=== PATIENT | male | born 1945 | race Caucasian/White ===

== ENCOUNTER 2020-12-14 13:14 | Outpatient (CLI) | payer MEDICARE ==
[~2020-12-14] VITALS: Ht 177.8 cm; Wt 95.4 kg
[2020-12-14 13:32] VITALS: BP 149/72
[2020-12-14] MEDS ORDERED: A/C/1TAB3 PO (13:57)
[2020-12-14] MEDS ORDERED: APIX5TAB PO (13:57)
[2020-12-14] MEDS ORDERED: ATOR80TA76 PO (13:57)
[2020-12-14] MEDS ORDERED: ASPI-999 PO (13:57)
[2020-12-14] MEDS ORDERED: GLUC100016 PO (13:57)
[2020-12-14] MEDS ORDERED: LISI10TA25 PO (13:57)
[2020-12-14] MEDS ORDERED: OMEP20TA7 PO (13:57)
[2020-12-14] MEDS ORDERED: TMSL.4C PO (13:57)
[2020-12-14] MEDS ORDERED: OMG1KC PO (13:57)
[2020-12-14] MEDS ORDERED: AMIO100T PO (13:57)
[2020-12-14 13:59] LABS: BASOPHILS % (AUTO) 1 % (0-10); EOSINOPHILS # (AUTO) 0.1 10^3/uL (0.0-0.3); EOSINOPHILS % (AUTO) 2 % (0-10); HEMATOCRIT 34 % (40-54); HEMOGLOBIN 10.8 g/dL (13.3-17.7); LYMPHOCYTES # (AUTO) 2.1 10^3/uL (1.0-4.0); LYMPHOCYTES % (AUTO) 29 % (12-44); MEAN CORPUSCULAR HEMOGLOBIN 31 pg (25-34); MEAN CORPUSCULAR HGB CONC 32 g/dL (32-36); MEAN CORPUSCULAR VOLUME 96 fL (80-99); MEAN PLATELET VOLUME 11.3 fL (9.0-12.2); MONOCYTES # (AUTO) 0.5 10^3/uL (0.0-1.0); MONOCYTES % (AUTO) 6 % (0-12); NEUTROPHILS # (AUTO) 4.6 10^3/uL (1.8-7.8); NEUTROPHILS % (AUTO) 62 % (42-75); PLATELET COUNT 204 10^3/uL (130-400); WHITE BLOOD COUNT 7.3 10^3/uL (4.3-11.0)
[2020-12-14 14:05] LABS: POTASSIUM 4.2 MMOL/L (3.6-5.0)
[2020-12-14 14:06] LABS: CALCIUM 8.9 MG/DL (8.5-10.1)
[2020-12-14 14:11] LABS: CREATININE SERUM 1.31 MG/DL (0.60-1.30)
== END 2020-12-14 15:30 | disposition home or self-care (01) ==
LOC: PREOP 13:14
PROVIDERS: ATTEND Otolaryngology Otolaryngology/Facial Plastic Surgery
DX: Z01.812 Encounter for preprocedural laboratory examination (principal); L98.9 Disorder of the skin and subcutaneous tissue, unspecified
CPT/HCPCS: 36415; 80048; 85025; 87081

== ENCOUNTER 2020-12-18 07:33 | Day surgery (SDC) | payer MEDICARE ==
[2020-12-18] VITALS (11 sets, daily range): BP systolic 139–146; BP diastolic 66–82
[~2020-12-18] VITALS: Ht 177.8 cm; Wt 95.4 kg
[~2020-12-18 07:33] MED LIST: A/C/1TAB3 PO; AMIO100T PO; APIX5TAB PO; ASPI-999 PO; ATOR80TA76 PO; GLUC100016 PO; LISI10TA25 PO; OMEP20TA7 PO; OMG1KC PO; TMSL.4C PO
[2020-12-18] MEDS: LACTATED RINGERS 1,000 ML IV PRN ×2 (07:48→10:20)
[2020-12-18] MEDS ORDERED: LIDOCAINE/EPI 1%-1:100,000 (XYLOCAINE) 20ML ONE (08:34)
[2020-12-18] MEDS ORDERED: MUPIROCIN 2% OINT 22 GM (BACTROBAN) TUBE ONE (08:34)
[2020-12-18] MEDS ORDERED: fentaNYL INJ 100 MCG/2 ML AMP ONE (08:37)
--- NOTE | 2020-12-18 09:49 | Progress Note-Pre Operative ---
Pre-Operative Progress Note H&P Reviewed The H&P was reviewed, patient examined and no changes noted. Date Seen by Provider: Dec 18, 2020 Time Seen by Provider: : Date H&P Reviewed: Dec 18, 2020 Time H&P Reviewed: : Pre-Operative Diagnosis: Right cheek , left nasal alae, left post-auric lesions ELIZABETH ROBLEDO MD Dec 18, 2020 09:49
[2020-12-18] MEDS ORDERED: HYDROcodone/APAP 5 MG/325 MG (LORTAB) TAB PO PRN (10:00)
[2020-12-18] MEDS ORDERED: ACETAMINOPHEN 325 MG TABLET PO PRN (10:00)
[2020-12-18] MEDS ORDERED: proPOfol 200 MG/20 ML (DIPRIVAN) VIAL IV ONE ×2 (10:40→11:30)
[2020-12-18] MEDS ORDERED: SEVOFLURANE (ULTANE) 15 ML INHAL SOLN ONE ×12 (10:40→12:32)
[2020-12-18] MEDS ORDERED: LIDOCAINE PF 2% 5 ML (XYLOCAINE) VIAL ONE (10:40)
[2020-12-18] MEDS ORDERED: ONDANSETRON 4 MG/2 ML (SDV) Z0FRAN ONE (10:40)
[2020-12-18] MEDS ORDERED: MEPERIDINE (DEMEROL) INJ 50 MG/ML IVP ONE (13:00)
[2020-12-18] MEDS ORDERED: morphine INJ 10 MG/ML 1ML (SYR OR VIAL) IVP ONE (13:00)
[2020-12-18] MEDS ORDERED: ONDANSETRON 4 MG/2 ML (SDV) Z0FRAN IVP PRN (13:00)
[2020-12-18] MEDS ORDERED: ACHD5005 PO (13:13)
[2020-12-18] MEDS ORDERED: CEPH500T PO (13:13)
--- NOTE | 2020-12-18 13:13 | Anesthesia-General Post-Op ---
General Patient Condition Mental Status/LOC: Same as Preop Cardiovascular: Satisfactory Nausea/Vomiting: Absent Respiratory: Satisfactory Pain: Controlled Complications: Absent Post Op Complications Complications None Follow Up Care/Instructions Patient Instructions None needed. Anesthesia/Patient Condition Patient Condition Patient is doing well, no complaints, stable vital signs, no apparent adverse anesthesia problems. No complications reported per nursing. JESSICA MCDANIEL CRNA Dec 18, 2020 13:13
== END 2020-12-18 14:55 | disposition home or self-care (01) ==
LOC: SDC 07:33
PROVIDERS: ATTEND Otolaryngology Otolaryngology/Facial Plastic Surgery
DX: C76.0 Malignant neoplasm of head, face and neck (principal); C44.311 Basal cell carcinoma of skin of nose; C44.219 Basal cell carcinoma of skin of left ear and external auricular canal; I48.91 Unspecified atrial fibrillation; E78.5 Hyperlipidemia, unspecified; Z95.5 Presence of coronary angioplasty implant and graft; Z95.818 Presence of other cardiac implants and grafts; Z87.891 Personal history of nicotine dependence; Z79.82 Long term (current) use of aspirin; Z79.899 Other long term (current) drug therapy; Z85.828 Personal history of other malignant neoplasm of skin
CPT/HCPCS: 88305; 88331; 88332

== ENCOUNTER → 2022-06-12 | Outpatient (CLI) | payer MEDICARE ==
[~2022-06-12] VITALS: Ht 177 cm; Wt 81.0 kg
[~2022-06-12] MED LIST changes: +ACHD5005 PO; +CATHETER FLUSH 10 ML SYR IVP PRN; +CEPH500T PO; +OMEP20TA56 PO; -OMEP20TA7 PO
[2022-06-12 08:57] VITALS: BP 123/75
[2022-06-12 09:03] VITALS: BP 141/58
--- NOTE | 2022-06-12 11:25 | Cardiology Stress Test Report ---
Stress Test Report Date of Procedure/Referring: Date of Procedure: Jun 12, 2022 PCP Julius Corley DO Admitting Physician Admitting Physician: Attending Physician: Aramni Gray MD Indications: HTN Baseline Heart Rate: 60 Baseline Blood Pressure: Blood Pressure Systolic: 141 Blood Pressure Diastolic: 58 Vital Signs Date Time Temp Pulse Resp B/P (MAP) Pulse Ox O2 Delivery O2 Flow Rate FiO2 06/12/22 08:57 61 123/75 (91) 06/12/22 09:03 98 Room Air Baseline Vital Signs Vital Signs Date Time Temp Pulse Resp B/P (MAP) Pulse Ox O2 Delivery O2 Flow Rate FiO2 06/12/22 08:57 61 123/75 (91) 06/12/22 09:03 98 Room Air Baseline EKG: Baseline EKG: NSR Summary: After explaining the procedure and details to the patient, he signed the consent and was brought to the stress nuclear laboratory. Patient exercised on standard Naresh protocol, EKG, heart rate and blood pressure were monitored continuously, resting and stress doses of radio tracer were injected, imaging was acquired and reviewed in the short axis, horizontal long axis and vertical long axis views Patient was able to exercise for a total of 4.30 minutes on Naresh protocol, METs 6.1 Maximum heart rate 131 Maximum blood pressure 187/69 Stress EKG, Minimal nondiagnostic changes Recovery EKG, Return to baseline TID: 1.13 SSS: 21 SDS: 2 EF: 37 Conclusion: 1. Fair exercise tolerance for a total of 4 minutes and 30 seconds on standard Naresh protocol 6.1 METS achieving 90% of maximum expected heart rate 2. Appropriate heart rate response to exercise with frequent PVCs noted during exercise and ventricular trigeminy resolved in recovery 3. Hypertensive response to exercise with peak blood pressure 187/69 return to baseline during recovery 4. 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 Dilated left ventricle with diffuse left ventricular hypokinesia with ejection fraction 37% ARMANI GRAY MD Jun 12, 2022 11:25
== END ==
LOC: CARD 07:30
PROVIDERS: ATTEND Internal Medicine Cardiovascular Disease
DX: I10 Essential (primary) hypertension (principal); I25.10 Atherosclerotic heart disease of native coronary artery without angina pectoris
CPT/HCPCS: 78452; 93017; A9502

== ENCOUNTER 2022-06-26 07:13 | Day surgery (SDC) | payer MEDICARE ==
[2022-06-26] VITALS (13 sets, daily range): BP systolic 105–152; BP diastolic 62–80
[~2022-06-26] VITALS: Ht 177.8 cm; Wt 96.4 kg
[~2022-06-26 07:13] MED LIST changes: -CATHETER FLUSH 10 ML SYR IVP PRN
[2022-06-26] MEDS ORDERED: NS IV 1000 ML 1,000 ML IV ONE (07:45)
[2022-06-26] MEDS ORDERED: HEParin (CATH LAB) 2,000 ML IV ONE (07:53)
[2022-06-26] MEDS ORDERED: LIDOCAINE 1% INJ 30 ML (XYLOCAINE) VIAL ONE (07:53)
[2022-06-26] MEDS ORDERED: NS IV 1000 ML 1,000 ML ONE (07:53)
[2022-06-26] MEDS ORDERED: NS IV 1000 ML 1,000 ML IV SCH ×2 (08:15→11:30)
[2022-06-26 08:26] LABS: HEMATOCRIT 36 % (40-54); HEMOGLOBIN 11.6 g/dL (13.3-17.7); MEAN CORPUSCULAR HEMOGLOBIN 31 pg (25-34); MEAN CORPUSCULAR HGB CONC 33 g/dL (32-36); MEAN CORPUSCULAR VOLUME 96 fL (80-99); MEAN PLATELET VOLUME 10.9 fL (9.0-12.2); PLATELET COUNT 189 10^3/uL (130-400); WHITE BLOOD COUNT 8.1 10^3/uL (4.3-11.0)
--- NOTE | 2022-06-26 08:26 | Diagnostic Imaging Report ---
INDICATION: Pre-heart catheterization. Time of Exam: 8:06 AM No prior studies are available for comparison. Findings: The heart size is normal. The pulmonary vascularity is unremarkable. The lungs are clear. No infiltrate, effusion or pneumothorax is detected. Impression: No acute cardiopulmonary process is detected. Dictated by: Dictated on workstation # [id number]
[2022-06-26 08:27] LABS: BILIRUBIN,URINE NEGATIVE (NEGATIVE); CLARITY,URINE CLEAR; COLOR,URINE YELLOW; GLUCOSE, URINE (UA) NEGATIVE (NEGATIVE); KETONES,URINE NEGATIVE (NEGATIVE); LEUKOCYTE ESTERASE ,URINE NEGATIVE (NEGATIVE); NITRITE,URINE NEGATIVE (NEGATIVE); PH,URINE 7.5 (5-9); PROTEIN,URINE NEGATIVE (NEGATIVE)
[2022-06-26] MEDS ORDERED: OMEP20TA56 PO (08:40)
[2022-06-26] MEDS ORDERED: ASPI-1238 PO (08:40)
[2022-06-26] MEDS ORDERED: AMIO200T65 PO (08:40)
[2022-06-26] MEDS ORDERED: GLUC100016 PO (08:40)
[2022-06-26] MEDS ORDERED: OMEG100032 PO (08:40)
[2022-06-26] MEDS ORDERED: APIX5TAB PO (08:40)
[2022-06-26 08:41] LABS: BACTERIA,URINE NEGATIVE /HPF
[2022-06-26 08:43] LABS: INR 1.2 (0.8-1.4); PROTHROMBIN TIME PATIENT 15.3 SEC (12.2-14.7)
[2022-06-26 08:52] LABS: BILIRUBIN,TOTAL 0.8 MG/DL (0.1-1.0); CALCIUM 9.1 MG/DL (8.5-10.1); CREATININE SERUM 1.5 MG/DL (0.60-1.30); POTASSIUM 4.2 MMOL/L (3.6-5.0); TOTAL PROTEIN 7.3 GM/DL (6.4-8.2)
[2022-06-26] MEDS ORDERED: MIDAZOLAM 5 MG/5 ML (VERSED) VIAL ONE (10:37)
[2022-06-26] MEDS ORDERED: VERAPAMIL 5 MG/2 ML (CALAN) VIAL IV ONE (10:37)
[2022-06-26] MEDS ORDERED: fentaNYL INJ 100 MCG/2 ML AMP ONE (10:37)
[2022-06-26] MEDS ORDERED: HEParin 1000 UNIT/ML (10ML VIAL) FOR BOLUS ONE (10:37)
[2022-06-26] MEDS ORDERED: NITRO DRIP 25000 MCG/D5W 250 ML IV ONE (10:38)
--- NOTE | 2022-06-26 10:53 | Cardiac Procedure Note-CS/ASA ---
Pre-Procedure Note Pre-Op Procedure Note Date of Available H&P: Jun 13, 2022 Date H&P Reviewed: Jun 26, 2022 Time H&P Reviewed: 10:40 History & Physical: H&P Reviewed, Patient Examed, No changes noted Pre-Operative Diagnosis: Coronary artery disease Conscious Sedation Pre-Proced Time 10:40 ASA Score 3 For ASA 3 and 4: Consider anesthesia and medical clearance. Also, for patients with a history of failed moderate sedation consider anesthesia. Airway Lungs Heart ASA score ASA 1: a normal healthy patient ASA 2: a patient with a mild systemic disease (mid diabetes, controlled hypertension, obesity ASA 3: a patient with a severe systemic disease that limits activity (angina, COPD, prior Myocardial infarction) ASA 4: a patient with an incapacitating disease that is a constant threat to life (CHF, renal failure) ASA 5: a moribund patient not expected to survive 24 hrs. (ruptured aneurysm) ASA 6: a declared brain- patient whose organs are being harvested. For emergent operations, add the letter E after the classification Mallampati Classification Grade 3 Sedation Plan Analgesia, Amnesia, Plan communicated to team members, Discussed options with patient/fam, Discussed risks with patient/fam The patient is an appropriate candidate to undergo the planned procedure, sedation, and anesthesia. The patient immediately re-assessed prior to indication. JUAN C DE LA FUENTE MD Jun 26, 2022 10:53
--- NOTE | 2022-06-26 11:28 | Discharge Inst-Post CATH ---
Discharge Inst-CATH/EP Problems Reviewed?: Yes Post Cardiac Cath/EP D/C Inst Follow Up/Plan Appointment with Dr Gray in 2-4 weeks <b>CARDIAC CATH/EP PROCEDURE DISCHARGE INSTRUCTIONS</b> ACTIVITY * Go Home directly and rest. * Limit activity of the leg (or wrist if it was used) for 7 days including aerobics, swimming, jogging, bicycling, etc. * Restrict stair-climbing for 7 days if possible, if not, climb up with your non-cath leg, then bring together on the same step. * Avoid lifting, pushing, pulling or excessive movement of the affected extremity for 7 days. * Customary sexual activity may be resumed after 2 days-use caution not to use a position that strains or causes pain to the affected extremity. * No driving for 24 hours. * NO SMOKING. * Avoid straining for bowel movements for 7 days. * Gentle walking on level ground is allowed. * Returning to work will depend on the type of procedure and the results. Your doctor will discuss this with you. CALL YOUR DOCTOR FOR ANY OF THE FOLLOWING: *If bleeding from the puncture site occurs- Apply gentle pressure to site with clean cloth and call your doctor or EMS. * If a knot or lump forms under the skin, increases in size, or causes pain. * If bruising appears to be worsening or moving further down your leg instead of disappearing. * Temperature above 101 F. CARE OF YOUR GROIN INCISION; * Bruising or purple discoloration of the skin near the puncture site is common. * You may shower only, no bathtub bathing for 5 days. Be careful to avoid slipping as your leg may feel stiff. * If a closure device was used on your femoral artery, please see the attached guide regarding care of the device and your leg. * Leave dressing on FOR 24 hours. CARE OF YOUR WRIST INCISION; * Bruising or purple discoloration of the skin near the puncture site is common. * You may shower. * DO NOT submerge wrist. * Leave dressing on FOR 24 hours. JUAN C GRAY MD Jun 26, 2022 11:28
--- NOTE | 2022-06-26 11:33 | Cardiac Cath Report ---
Cardiac Cath Report Physician (s)/Real Estate Lawyer (s) Physician JUAN C DE LA FUENTE MD Pre-Procedure Diagnosis Pre-Procedure Diagnosis: Coronary artery disease Post-Procedure Note Procedure Start Date: Jun 26, 2022 Name of Procedure: Left heart catheterization Findings/Procedure Note PROCEDURE NOTE: 77-year-old gentleman with history of coronary artery disease, multiple intervention, had an abnormal stress test, scheduled for cardiac catheterization possible PTCA. After explaining the procedure to the patient, all pros and cons were explained, all questions were answered. The patient signed the consent and then he was placed on the cardiac catheterization laboratory. Groin was prepped SL fashion local anesthesia was used. Sheath placed in the right radial artery, Stratford catheter was advanced to the left ventricular cavity, pressure was measured, pullback LV to aorta was done, engage the right and left coronary system, multiple views were obtained. At the end of the procedure the sheath was removed. Vascular band was used FINDINGS: Hemodynamics LV 89/9, end-diastolic pressure of 9 Aorta 85/47 mean of 60 ANATOMY: Left Main is free of obstructive disease Left Anterior Descending has patent stent in the mid LAD. There is 40 to 50% stenosis in the proximal and mid LAD nonobstructive disease Left Circumflex has patent stent in the mid circumflex artery, the first obtuse marginal branch is a very small branch with severe ostial stenosis, not amendable to intervention Right Coronary Artery is dominant artery with 40 to 50% stenosis in the mid right coronary artery LV Gram was not done, pressure was measured CONCLUSION: 1. Patent stent in the mid LAD with 40 to 50% stenosis in the proximal and mid LAD. Nonobstructive disease 2. Patent stent in the mid circumflex artery with severe stenosis at the ostial of a very small first obtuse marginal branch. Not amendable to intervention 3. 40 to 50% stenosis in the mid right coronary artery, dominant artery 4. Normal left ventricular end-diastolic pressure DISCUSSION AND RECOMMENDATION: Continue to maximize medical therapy Anesthesia Type: Conscious Sedation Estimated blood loss (mL): 15 ml Contrast Amount: 28 ml Total Radiation Dose: 455 mGy Post-Procedure Diagnosis Post-operative diagnosis: Chest pain Coronary artery disease Hypertension Hyperlipidemia JUAN C DE LA FUENTE MD Jun 26, 2022 11:33
== END 2022-06-26 15:30 | disposition home or self-care (01) ==
LOC: CATH 07:13 → SDC 11:40 → CATH 15:30
PROVIDERS: ATTEND Internal Medicine Cardiovascular Disease
DX: I25.10 Atherosclerotic heart disease of native coronary artery without angina pectoris (principal); I10 Essential (primary) hypertension; Z79.899 Other long term (current) drug therapy; Z87.891 Personal history of nicotine dependence; I65.23 Occlusion and stenosis of bilateral carotid arteries; C43.9 Malignant melanoma of skin, unspecified; I48.0 Paroxysmal atrial fibrillation; Z79.01 Long term (current) use of anticoagulants; E78.5 Hyperlipidemia, unspecified
CPT/HCPCS: 71045; 80053; 81000; 85027; 85610; 85730; 87081; 93005; 93458; C1894; 36415